=== PATIENT | male | born 1965 | race Caucasian/White ===

== ENCOUNTER → 2021-10-27 | Day surgery (SDC) | payer OTHER ==
[~2021-10-27] MED LIST: DAILY VALUE1 EACH PO; FAMOTIDINE20 MG PO; LIPITOR TAB 2020 MG PO; NORVASC5 MG PO; ZYRTEC10 MG PO
== END | disposition home or self-care (01) ==
LOC: OR 07:05
DX: R19.5 Other fecal abnormalities (principal); I10 Essential (primary) hypertension; K57.30 Diverticulosis of large intestine without perforation or abscess without bleeding; Z20.822 Contact with and (suspected) exposure to COVID-19
CPT/HCPCS: J2704; J7120; U0002